=== PATIENT | male | born 1950 | race Caucasian/White ===

== ENCOUNTER 2016-10-04 11:43 | Outpatient (CLI) | payer MEDICARE, BC ==
[~2016-10-04] VITALS: Ht 180.3 cm; Wt 77.3 kg
[2016-10-04] VITALS (11 sets, daily range): BP systolic 125–180; BP diastolic 81–111; PULSE 61–80; TEMP 97.7
[~2016-10-04 11:43] MED LIST: ASPIRIN 81M81 MG/TA2 PO; CIPRO 250MG TA250 MG PO; MACRODANTIN100 PO; NEXIUM 40MG40 MG PO
[2016-10-04] MEDS ORDERED: MASON NATURAL1000 MG PO (13:25)
[2016-10-04] MEDS ORDERED: VTAMINC250TA PO (13:25)
[2016-10-04] MEDS ORDERED: COMPLETE SENIOR1 TA1 PO (13:26)
[2016-10-04] MEDS ORDERED: GLUCOSAMINE & C1 CA1 PO (13:26)
[2016-10-04] MEDS ORDERED: CRANBERRY500 M3 PO (13:27)
== END 2016-10-04 16:26 | disposition home or self-care (01) ==
LOC: COL.RAD 11:43
DX: R91.1 Solitary pulmonary nodule (principal)
CPT/HCPCS: 3748

== ENCOUNTER → 2021-05-28 | Outpatient (CLI) | payer MEDICARE, BC ==
[~2021-05-28] MED LIST changes: +BACTRIM DS 8001 TAB PO; +COMPLETE SENIOR1 TA1 PO; +CRANBERRY500 M3 PO; +GLUCOSAMINE & C1 CA1 PO; +MASON NATURAL1000 MG PO; +TOPROL XL 50MG50 MG PO; +VTAMINC250TA PO
== END ==
LOC: ZCOL.LAB 15:57
DX: L02.413 Cutaneous abscess of right upper limb (principal)

== ENCOUNTER → 2021-06-03 | Outpatient (CLI) | payer MEDICARE, BC | LOC: COL.RAD 10:29 | DX: R31.9 Hematuria, unspecified (principal) | CPT/HCPCS: Q9967 ==

== ENCOUNTER 2021-07-01 13:16 | Day surgery (SDC) | payer MEDICARE, BC ==
[2021-07-01] VITALS (7 sets, daily range): BP systolic 129–178; BP diastolic 78–97; PULSE 61–84; TEMP 97.2–98.3
[~2021-07-01] VITALS: Ht 180.3 cm; Wt 77.0 kg
[2021-07-01] MEDS ORDERED: VITAMIN C500 MG PO (13:59)
[2021-07-01] MEDS ORDERED: ASPIRIN 81M81 MG/TA2 PO (13:59)
[2021-07-01] MEDS ORDERED: CRANBERRY500 M3 PO (14:00)
[2021-07-01] MEDS ORDERED: CALCIUM 600MG+D1 TAB PO (14:00)
[2021-07-01] MEDS ORDERED: MULTI VITAMINS1 TAB PO (14:02)
[2021-07-01] MEDS ORDERED: GLUCOSAMINE & C1 CA2 PO (14:02)
--- NOTE | 2021-07-01 17:00 | NUR ---
Patient returns to room 2 per cart from PACU accompanied by Kelsie BETANCOURT and is awake and alert. IV fluids infusing. Yates catheter in place with dilute urine noted. Denies pain or nausea. Spouse in room. Siderails up x2 and call light in reach.
--- NOTE | 2021-07-01 17:10 | NUR ---
10mg of Apresoline given for elevated blood pressure of 175/94 by Kelsie BETANCOURT and order was obtained from Jamil Johnson CRNA. Will continue to monitor.
--- NOTE | 2021-07-01 17:25 | NUR ---
Tolerated ice cream and diet Pepsi.
--- NOTE | 2021-07-01 17:40 | NUR ---
Leg bag connected to escudero catheter. Urine remains dilute. IV discontinued and site is free of redness or swelling.
--- NOTE | 2021-07-01 17:55 | NUR ---
Patient assisted with dressing and into wheelchair. Dismissal instructions given and voices understanding of these.
--- NOTE | 2021-07-01 18:00 | NUR ---
Patient dismissed to home driven by spouse and accompanied by ER entrance and patient into wheelchair van with dismissal instructions in hand.
== END 2021-07-01 18:00 | disposition home or self-care (01) ==
LOC: SDCO 13:16
DX: N21.0 Calculus in bladder (principal); N31.2 Flaccid neuropathic bladder, not elsewhere classified; N39.0 Urinary tract infection, site not specified; N30.00 Acute cystitis without hematuria
CPT/HCPCS: J0360; J0690; J1100; J2405; J2704; J3010; J7120

== ENCOUNTER 2021-09-05 11:38 | Emergency (ER) | payer MEDICARE, BC ==
[~2021-09-05] VITALS: Ht 180.3 cm; Wt 77.3 kg
[~2021-09-05 11:38] MED LIST changes: +CALCIUM 600MG+D1 TAB PO; +GLUCOSAMINE & C1 CA2 PO; +MULTI VITAMINS1 TAB PO; +VITAMIN C500 MG PO
[2021-09-05 11:47] VITALS: TEMP 98.5
[2021-09-05 12:02] LABS: BASO # 0.1 K/mm3 (0.0-0.2); BASO % 0.3 % (0.0-2.0); EOS % 0.1 % (0.0-4.0); GRAN # 13.8 K/mm3 (1.4-6.5); GRAN % 87.6 % (42.2-75.2); HEMATOCRIT 42.6 % (42.0-52.0); HEMOGLOBIN 14.5 g/dl (13.5-18.0); LYMPH # 0.8 K/mm3 (1.2-3.4); MEAN CELL VOLUME 86 fl (80.0-100.0); MEAN CORPUSCULAR HEMOGLOBIN 29 pg (27-31); MEAN CORPUSCULAR HGB CONC 34 g/dl (33.0-37.0); MEAN PLATELET VOLUME 9.3 fl (7.4-10.4); MONO # 1.1 K/mm3 (0.1-0.6); MONO % 6.7 % (1.7-9.3); PLATELET COUNT 261 K/mm3 (130-400); RED BLOOD COUNT 4.97 M/mm3 (4.20-5.60); REDCELL DISTRIBUTION WIDTH-CV 13.9 % (11.5-14.5)
[2021-09-05 12:18] LABS: ALANINE AMINOTRANSFERASE 11 U/L (0-55); ALBUMIN 3.6 gm/dL (3.4-4.8); ALKALINE PHOSPHATASE 89 U/L (40-150); ANION GAP 11 mmol/L (7-16); AST,SGOT 13 U/L (5-34); BILIRUBIN,TOTAL 0.3 mg/dL (0.2-1.2); BLOOD UREA NITROGEN 7 mg/dL (8-26); CARBON DIOXIDE 26 mmol/L (23-31); CHLORIDE 102 mmol/L (98-107); CREATININE, serum 0.71 mg/dL (0.72-1.25); GLUCOSE 102 mg/dL (70-99); LIPASE 40 U/L (8-78); POTASSIUM 4.8 mmol/L (3.5-4.5); SODIUM 139 mmol/L (136-145); TOTAL PROTEIN 7.1 gm/dL (6.2-8.1)
[2021-09-05 12:22] LABS: COLLECTION METHOD CLEAN CATCH
[2021-09-05 12:29] LABS: PH 7 (5-8); SQUAMOUS EPITHELIAL 0-2 /hpf (0-10); URINE APPEARANCE Cloudy (CLEAR/HAZY); URINE BACTERIA Rare /hpf (NONE SEEN); URINE BILIRUBIN Negative (NEGATIVE); URINE BLOOD Negative (NEGATIVE); URINE COLOR Yellow (YELLOW); URINE GLUCOSE Negative (NEGATIVE); URINE KETONE Negative (NEGATIVE); URINE LEUKOCYTE ESTERASE 3+ (NEGATIVE); URINE NITRATE Positive (NEGATIVE); URINE PROTEIN(semi-quant) 1+ (NEGATIVE); URINE UROBILINOGEN Negative (NEGATIVE)
[2021-09-05 12:37] LABS: TROPONIN-I < 0.010 ng/mL (0.00-0.033); TSH w REFLEX 0.304 uIU/mL (0.350-4.940)
[2021-09-05] MEDS ORDERED: VANTIN 200200 MG/TAB PO (14:00)
[2021-09-05] MEDS ORDERED: QUALITY CHOI500 U/GM TOP (14:31)
[2021-09-05 15:28] VITALS: BP 105/65; PULSE 104
== END 2021-09-05 15:28 | disposition home or self-care (01) ==
LOC: COL.ER 11:38
PROVIDERS: Emergency Medicine
DX: N39.0 Urinary tract infection, site not specified (principal); R03.1 Nonspecific low blood-pressure reading; Z98.890 Other specified postprocedural states; Z20.822 Contact with and (suspected) exposure to COVID-19
CPT/HCPCS: J0696; J7120